=== PATIENT | male | born 1930 | race Caucasian/White ===

== ENCOUNTER → 2017-03-16 | Outpatient (CLI) | payer MEDICARE ==
[~2017-03-16] MED LIST: ASP81CT PO; ATOR40TA PO; CPR500T PO; MULT-963 PO; RAMI5CAP PO; TADA2.5T PO
--- NOTE | 2017-03-16 11:43 | Diagnostic Imaging Report ---
PROCEDURE: CT abdomen and pelvis without contrast. TECHNIQUE: Multiple contiguous axial images were obtained through the abdomen and pelvis without the use of intravenous contrast. INDICATION: Gross hematuria. FINDINGS: There is a 5 mm nodule in the right middle lobe surrounded by areas of scarring, similar to the 02/07/2016 exam, likely related to a focal scar. There is a subxiphoid fat-containing ventral hernia. There are multiple gallstones seen in the contracted gallbladder which demonstrates mild gallbladder wall thickening. No pericholecystic fluid. The liver, spleen, adrenal glands, and pancreas appear unremarkable. The abdominal aorta is 3 cm in diameter in the infrarenal segment, a relatively small AAA which measured up to 2.9 cm on the 02/07/2016 exam. The prostate is markedly enlarged measuring in maximum axial dimension 6.6 x 5 cm. The urinary bladder wall shows mild diffuse thickening, probably related to chronic obstructive changes related to the prostate. Superimposed cystitis could be present. There are no urinary tract stones. There is no hydronephrosis in either kidney. The colon demonstrates numerous diverticuli, mostly in the sigmoid colon, with no evidence of diverticulitis. No bowel obstruction. No significant fluid or fluid collection in the abdomen or pelvis is seen. There is a fat-containing small right indirect inguinal hernia. There is a right sided vascular graft with a takeoff from the upper common femoral artery and directed caudally. The osseous structures demonstrate advanced degenerative changes. IMPRESSION: 1. Markedly enlarged and lobulated prostate gland. Correlate with PSA levels. 2. Urinary bladder mild diffuse wall thickening could be related to chronic obstructive changes from the prostate enlargement of related to cystitis. 3. 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 4. Diverticulosis but no diverticulitis. 5. There are gallbladder stones with a contracted gallbladder which may relate to chronic cholecystitis. 6. Subxiphoid ventral fat-containing hernia. Dictated by: Dictated on workstation # [id number]
== END ==
LOC: RAD 08:27
PROVIDERS: ATTEND Urology
DX: R31.0 Gross hematuria (principal)
CPT/HCPCS: 74176

== ENCOUNTER → 2018-01-13 | Outpatient (CLI) | payer MEDICARE ==
[~2018-01-13] VITALS: Ht 177.8 cm; Wt 83.0 kg
[~2018-01-13] MED LIST changes: +REGADENOSON 0.4 MG/5 ML SYR (LEXISCAN) IV ONE
[2018-01-13] MEDS: CATHETER FLUSH 10 ML SYR IV PRN ×2 (11:55→13:17)
[2018-01-13 13:15] VITALS: BP 156/86
--- NOTE | 2018-01-14 01:07 | STRESS TEST ---
DATE OF SERVICE: 01/13/2018 LEXISCAN MYOVIEW STRESS TEST REPORT REFERRING PHYSICIAN: Dm Oconnor DO. Baseline heart rate is 59, baseline blood pressure 156/86. Baseline EKG is sinus rhythm with no ischemic changes. In summary, patient was injected with 10.9 mCi of technetium-99 Myoview and the resting images were obtained. Then, the patient received 0.4 mg of Lexiscan followed by 29.2 mCi of technetium-99 Myoview. Throughout the test, there were no EKG changes. The resting and stress images were reviewed and compared in the short axis, horizontal long axis, and vertical long axis views. Review of the images showed diaphragmatic attenuation with fixed defect involving the basal to mid inferolateral wall. No significant ischemia was noted. SSS is 7, SDS 0, and TID value 1.0. On the gated images, the left ventricle appeared to be in normal size with normal contractility. Calculated ejection fraction is 64%. CONCLUSION: 1. The patient tolerated Lexiscan well. 2. Diaphragmatic attenuation with fixed defect involving the basal to mid inferolateral wall with no significant ischemia. 3. Normal left ventricular size with normal contractility. Calculated ejection fraction is 64%. Job ID: [id number] DocumentID: [id number] Dictated Date: 01/13/2018 17:32:43 Impact Hammer Operator Date: 01/13/2018 23:01:46 Dictated By: JACOB STARKEY MD
== END ==
LOC: CARD 10:27
PROVIDERS: ATTEND Internal Medicine Cardiovascular Disease
DX: I25.10 Atherosclerotic heart disease of native coronary artery without angina pectoris (principal); I10 Essential (primary) hypertension; E78.2 Mixed hyperlipidemia; I73.9 Peripheral vascular disease, unspecified; R00.2 Palpitations; I47.2 Ventricular tachycardia; M19.90 Unspecified osteoarthritis, unspecified site
CPT/HCPCS: 78452; 93017

== ENCOUNTER → 2018-11-25 | Outpatient (CLI) | payer MEDICARE ==
[~2018-11-25] MED LIST changes: +IOHEXOL 350 MG/ML 100 ML (OMNIPAQUE 350) VIAL IV ONE; +NS 100 ML (IVPB) BAG IV ONE; +RECEIVED CONTRAST (Hold Metformin) IV SCH; -REGADENOSON 0.4 MG/5 ML SYR (LEXISCAN) IV ONE
[2018-11-25 15:34] LABS: BUN/CREATININE RATIO 11; CREATININE SERUM 0.99 MG/DL (0.60-1.30); GFR ESTIMATED > 60
--- NOTE | 2018-11-25 17:52 | Diagnostic Imaging Report ---
INDICATION: Lymphadenopathy. TECHNIQUE: CT of the neck, chest, abdomen, and pelvis obtained with precontrast CT of the abdomen followed by post IV contrast study of the neck, chest, abdomen, and pelvis. COMPARISON: There is no prior neck or chest CT, comparison made to prior abdomen and pelvis CT of 03/16/2017. CT neck findings: Thyroid gland and submandibular glands and parotid glands appear symmetric and unremarkable. There is moderate plaquing in the carotid bifurcations. There are no appreciably enlarged nodes in the neck soft tissues. Epiglottis appears unremarkable. CT chest findings: There are no enlarged mediastinal or hilar nodes. There are no enlarged axillary nodes or chest wall lesions. There is no pleural or pericardial fluid. Patient has had previous coronary bypass. Lung parenchymal windows demonstrate emphysematous changes. There are some patchy groundglass infiltrates in the left midlung and superior segment of the left lower lobe as well as in the right upper lobe. No discrete nodule is seen. CT abdomen and pelvis findings: The liver shows no focal lesion. There is cholelithiasis. The spleen, pancreas, and adrenals appear normal. The kidneys bilaterally are unremarkable. The patient does have a small fat-containing ventral hernia in the epigastric region. This finding is unchanged compared to the prior study. There is no retroperitoneal adenopathy. There is no ascites. Visualized bowel loops show uncomplicated diverticula. There is no abnormal fluid collection in the pelvis. The patient appears to have a right femoral bypass. There is adenopathy versus mass in the soft tissues surrounding the origin of the bypass which may represent scarring and/or hematoma and/or abscess. This area in total measures about 4.1 x 2.5 cm. There is some induration of the fat extending up to the skin surface. There is a mildly prominent right inguinal node measuring about 11 mm. There is mild prostatic enlargement. The abdominal aorta is mildly aneurysmal measuring 3.1 cm. IMPRESSION: 1. CT neck demonstrates no appreciable adenopathy or mass lesion. There is some plaquing in the carotid bifurcation on both sides. There is no acute finding. 2. CT chest shows postoperative changes. There is no appreciable adenopathy in the chest. There are emphysematous changes. There are scattered groundglass infiltrates versus scarring in the parenchyma of both lungs, as above. There is no discrete or well-defined mass. 3. CT abdomen and pelvis demonstrates cholelithiasis. Abdominal aorta is mildly aneurysmal measuring 3.1 cm. There is abnormal soft tissue density about the patient's right femoral bifurcation and bypass origin, with soft tissue density measuring about 4.1 x 2.5 cm, not present on the previous study of 03/16/2017. This may represent hematoma, abscess, or scarring. There is induration of the fat extending up to the skin surface. Ultrasound may be helpful to further characterize this process. There is a mildly enlarged node in the right inguinal region measuring 11 mm. Dictated by: Dictated on workstation # [id number]
== END ==
LOC: RAD 14:09
PROVIDERS: ATTEND Surgery
DX: I65.23 Occlusion and stenosis of bilateral carotid arteries (principal); J43.9 Emphysema, unspecified; K80.20 Calculus of gallbladder without cholecystitis without obstruction; I71.4 Abdominal aortic aneurysm, without rupture; M79.89 Other specified soft tissue disorders; R59.0 Localized enlarged lymph nodes; Z95.1 Presence of aortocoronary bypass graft; Z98.890 Other specified postprocedural states
CPT/HCPCS: 36415; 70491; 71260; 74178; 82565; 84520

== ENCOUNTER 2019-01-17 05:39 | Outpatient (CLI) | payer MEDICARE ==
[~2019-01-17] VITALS: Ht 177.8 cm; Wt 79.4 kg
[~2019-01-17 05:39] MED LIST changes: -IOHEXOL 350 MG/ML 100 ML (OMNIPAQUE 350) VIAL IV ONE; -NS 100 ML (IVPB) BAG IV ONE; -RECEIVED CONTRAST (Hold Metformin) IV SCH
[2019-01-17] MEDS ORDERED: ACET-2469 PO (09:36)
[2019-01-17] MEDS ORDERED: RAMI5CAP65 PO (09:36)
[2019-01-17] MEDS ORDERED: METO-333 PO (09:36)
[2019-01-17] MEDS ORDERED: ASPI-999 PO (09:36)
[2019-01-17] MEDS ORDERED: ATOR80TA76 PO (09:36)
[2019-01-17] MEDS ORDERED: DUTA0.5C16 PO (09:36)
[2019-01-17] MEDS ORDERED: EZET10TA27 PO (09:36)
[2019-01-18] MEDS ORDERED: HYDR-34 PO (13:25)
== END 2019-01-17 09:51 | disposition home or self-care (01) ==
LOC: PREOP 05:39
PROVIDERS: ATTEND Surgery
DX: Z01.818 Encounter for other preprocedural examination (principal)

== ENCOUNTER 2019-01-18 08:27 | Day surgery (SDC) | payer MEDICARE ==
[~2019-01-18] VITALS: Ht 175.3 cm; Wt 77.1 kg
[~2019-01-18 08:27] MED LIST changes: +ACET-2469 PO; +ASPI-999 PO; +ATOR80TA76 PO; +DUTA0.5C16 PO; +EZET10TA27 PO; +METO-333 PO; +RAMI5CAP65 PO
[2019-01-18 09:00] VITALS: BP 133/69
[2019-01-18] MEDS ORDERED: LACTATED RINGERS 1,000 ML IV PRN (09:02)
[2019-01-18] MEDS ORDERED: ceFAZolin 2 GM IV Premixed 50 ML IV ONE (09:15)
[2019-01-18] MEDS ORDERED: CATHETER FLUSH 10 ML SYR IV PRN (09:30)
[2019-01-18] MEDS ORDERED: MIDAZOLAM 2 MG/2 ML (VERSED) VIAL IVP ONE (11:05)
[2019-01-18] MEDS ORDERED: MIDAZOLAM 2 MG/2 ML (VERSED) VIAL ONE (11:18)
[2019-01-18] MEDS ORDERED: BUP/EPI 0.5% 1:200,000 (SENSORCAINE) 30 ML VIAL ONE (11:56)
[2019-01-18] MEDS ORDERED: fentaNYL INJECTION 100 MCG/2 ML AMP ONE (12:40)
[2019-01-18] MEDS ORDERED: LIDOCAINE PF 2% 5 ML (XYLOCAINE) VIAL ONE (12:40)
[2019-01-18] MEDS ORDERED: SEVOFLURANE (ULTANE) 15 ML INHAL SOLN ONE ×5 (12:40→14:06)
[2019-01-18] MEDS ORDERED: ONDANSETRON 4 MG/2 ML (SDV) Z0FRAN ONE (12:40)
[2019-01-18] MEDS ORDERED: proPOfol 200 MG/20 ML (DIPRIVAN) VIAL IV ONE (12:40)
[2019-01-18] MEDS ORDERED: DEXAMETHASONE 10 MG/ML (DECADRON) 1 ML VIAL ONE (12:40)
--- NOTE | 2019-01-18 13:24 | Progress Note-Pre Operative ---
Pre-Operative Progress Note H&P Reviewed The H&P was reviewed, patient examined and no changes noted. Date Seen by Provider: Jan 18, 2019 Time Seen by Provider: 13:00 Date H&P Reviewed: Jan 18, 2019 Time H&P Reviewed: 13:00 Pre-Operative Diagnosis: persistent right groin mass KELLIE MÉNDEZ MD Jan 18, 2019 13:24
[2019-01-18] MEDS ORDERED: HYDR-34 PO (13:25)
--- NOTE | 2019-01-18 13:26 | Discharge Inst-Surgical ---
D/C Lap Instructions-K[place]Kerry New, Converted, or Re-Newed RX: RX on Chart Follow Up Appt in 2 weeks Activity as tolerated Regular Diet Symptoms to Report: Fever over 101 degree F, Nausea/Vomiting Infection Signs and Symptoms to report: Increased redness, Foul odor of wound, Increased drainage Bathing instructions: May shower Operative Area Clean/Dry; Keep incision clean/dry If any problems/questions: Contact your physician or go to Emergency Room KELLIE MÉNDEZ MD Jan 18, 2019 13:26
[2019-01-18] MEDS ORDERED: morphine INJ 10 MG/ML 1ML (SYR OR VIAL) IVP PRN (13:30)
[2019-01-18] MEDS ORDERED: ONDANSETRON 4 MG/2 ML (SDV) Z0FRAN IVP PRN ×2 (13:30→14:45)
[2019-01-18] MEDS ORDERED: oxyCODONE/APAP 5/325MG (PERCOCET 5) TABLET PO PRN (13:30)
[2019-01-18] MEDS ORDERED: ACETAMINOPHEN 325 MG TABLET PO PRN (13:30)
[2019-01-18] MEDS ORDERED: morphine INJ 10 MG/ML 1ML (SYR OR VIAL) IVP ONE (14:45)
--- NOTE | 2019-01-18 14:57 | Anesthesia-General Post-Op ---
General Patient Condition Mental Status/LOC: Same as Preop Cardiovascular: Satisfactory Nausea/Vomiting: Absent Respiratory: Satisfactory Pain: Controlled Complications: Absent Post Op Complications Complications None Follow Up Care/Instructions Patient Instructions None needed. Anesthesia/Patient Condition Patient Condition Patient is doing well, no complaints, stable vital signs, no apparent adverse anesthesia problems. ESTEFANI MAY DO Jan 18, 2019 14:57
[2019-01-18 15:25] VITALS: BP 161/72
[2019-01-18 15:55] VITALS: BP 159/78
--- NOTE | 2019-01-18 16:20 | OPERATIVE REPORT ---
DATE OF SERVICE: 01/18/2019 ATTENDING PRIMARY CARE PHYSICIAN: Dr. Oconnor. PREOPERATIVE DIAGNOSIS: Palpable mass and persistent open wound, right groin. 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 PROCEDURE: Dissection femoral arterial graft and vein and excision of chronic granulomatous tissue surrounding the structures. SURGEON: Kellie Méndez MD. ANESTHESIA: General laryngeal mask airway. ESTIMATED BLOOD LOSS: Minimal. FINDINGS: Chronic granulomatous tissue surrounding the right femoral PTFE graft from a previous femoral to popliteal bypass. The chronic granulomatous tissue was also encompassing the femoral vein and there was adjacent scar tissue causing compression, which was excised while preserving the arterial graft and vein. DISPOSITION: The patient tolerated the procedure well. INDICATIONS: The patient is an 88-year-old male, who presented with a right groin mass approximately in October of 2018. He reports that the mass grew larger in size and opened and began to drain. After we had seen him in the office, the lesion did not appear to be pulsatile; however, due to his previous history of femoral to popliteal bypass with PTFE graft in 2016, we referred him back to his vascular surgeon at [facility]. They report that an ultrasound was performed, which did not show any attachment to the graft to indicate a pseudoaneurysm or aneurysm. Upon further questioning, he reported that he did have an episode of fever and chills several months after the graft was placed and was worked up; however, no source of infection could be found at that time. Upon examination, he has a significant sized palpable mass of the right groin, which is nonpulsatile; however, hard. There is also an opening with chronic granulomatous tissue. DESCRIPTION OF PROCEDURE: The patient was brought to the operating room and laid supine on the table. After adequate IV pain and sedating medications and general laryngeal mask airway intubation, the perineum and abdomen prepped and draped in a standard surgical fashion. A 0.5% Marcaine with epinephrine was then used to anesthetize the overlying skin to the lesion. The open wound was then fully excised until normal skin was encompassed. We then proceeded with dissection of the tract and the entirety of the mass and dissection of all the chronic granulomatous tissue and scar tissue in the meticulous fashion using Metzenbaum scissors as well as electrocautery. As we followed the lesion down to the base, the lesion did encompass the femoral arterial graft, which was fully exposed using blunt dissection as well as electrocautery. The femoral vein was also left intact and the scar tissue around the femoral vein was then excised using a Metzenbaum scissors. Good hemostasis was observed. The specimen was sent to pathology. The fascia was then approximated using 3-0 Vicryl interrupted sutures. Skin was closed using 4-0 Monocryl running subcuticular suture. Wound was then cleaned and covered with Dermabond. The patient tolerated the procedure well. It appears that he does have a chronically infected PTFE femoral to popliteal graft at the level of the femoral anastomosis. Hopefully, after the excision of the granulomatous tissue as well as antibiotics, the infection can be contained and asymptomatic; however, if he does have a reoccurrence of the lesion, he will most likely need excision of the graft as well as placement of either autologous vein or a cryopreserved vein graft. Job ID: [id number] DocumentID: [id number] Dictated Date: 01/18/2019 15:17:38 Sole Rougher Date: 01/18/2019 16:19:31 Dictated By: KELLIE MÉNDEZ MD MTDD
[2019-01-18 16:25] VITALS: BP 160/97
== END 2019-01-18 16:25 | disposition home or self-care (01) ==
LOC: SDC 08:27
PROVIDERS: ATTEND Surgery
DX: T85.79XA Infection and inflammatory reaction due to other internal prosthetic devices, implants and grafts, initial encounter (principal); L92.9 Granulomatous disorder of the skin and subcutaneous tissue, unspecified; I25.10 Atherosclerotic heart disease of native coronary artery without angina pectoris; I73.9 Peripheral vascular disease, unspecified; I10 Essential (primary) hypertension; E78.00 Pure hypercholesterolemia, unspecified; N40.0 Benign prostatic hyperplasia without lower urinary tract symptoms; Z95.1 Presence of aortocoronary bypass graft; Z95.820 Peripheral vascular angioplasty status with implants and grafts; Z87.891 Personal history of nicotine dependence; Z79.82 Long term (current) use of aspirin; Z79.899 Other long term (current) drug therapy
CPT/HCPCS: 87081

== ENCOUNTER → 2019-02-23 | Outpatient (CLI) | payer MEDICARE ==
[~2019-02-23] MED LIST changes: +HYDR-34 PO
== END ==
LOC: WOUNDCARE 09:10
PROVIDERS: ATTEND Surgery
DX: T82.7XXA Infection and inflammatory reaction due to other cardiac and vascular devices, implants and grafts, initial encounter (principal); I70.211 Atherosclerosis of native arteries of extremities with intermittent claudication, right leg; L97.113 Non-pressure chronic ulcer of right thigh with necrosis of muscle; L03.115 Cellulitis of right lower limb
CPT/HCPCS: 11042

== ENCOUNTER → 2019-02-28 | Outpatient (CLI) | payer MEDICARE | LOC: WOUNDCARE 12:20 | PROVIDERS: ATTEND Surgery | DX: T82.7XXA Infection and inflammatory reaction due to other cardiac and vascular devices, implants and grafts, initial encounter (principal); I70.211 Atherosclerosis of native arteries of extremities with intermittent claudication, right leg; L97.113 Non-pressure chronic ulcer of right thigh with necrosis of muscle; L03.115 Cellulitis of right lower limb | CPT/HCPCS: 11042 ==

== ENCOUNTER → 2019-03-07 | Outpatient (CLI) | payer MEDICARE | LOC: WOUNDCARE 12:55 | PROVIDERS: ATTEND Surgery | DX: T82.7XXA Infection and inflammatory reaction due to other cardiac and vascular devices, implants and grafts, initial encounter (principal); I70.211 Atherosclerosis of native arteries of extremities with intermittent claudication, right leg; L97.113 Non-pressure chronic ulcer of right thigh with necrosis of muscle | CPT/HCPCS: 11042 ==

== ENCOUNTER → 2019-03-14 | Outpatient (CLI) | payer MEDICARE | LOC: WOUNDCARE 12:55 | PROVIDERS: ATTEND Surgery | DX: T82.7XXA Infection and inflammatory reaction due to other cardiac and vascular devices, implants and grafts, initial encounter (principal); I70.211 Atherosclerosis of native arteries of extremities with intermittent claudication, right leg; L97.112 Non-pressure chronic ulcer of right thigh with fat layer exposed | CPT/HCPCS: 11042 ==

== ENCOUNTER → 2019-03-21 | Outpatient (CLI) | payer MEDICARE | LOC: WOUNDCARE 12:45 | PROVIDERS: ATTEND Surgery | DX: T82.7XXA Infection and inflammatory reaction due to other cardiac and vascular devices, implants and grafts, initial encounter (principal); I70.211 Atherosclerosis of native arteries of extremities with intermittent claudication, right leg; L97.112 Non-pressure chronic ulcer of right thigh with fat layer exposed; L92.8 Other granulomatous disorders of the skin and subcutaneous tissue | CPT/HCPCS: 11042; 17250 ==

== ENCOUNTER → 2019-03-28 | Outpatient (CLI) | payer MEDICARE | LOC: WOUNDCARE 12:34 | PROVIDERS: ATTEND Surgery | DX: T82.7XXA Infection and inflammatory reaction due to other cardiac and vascular devices, implants and grafts, initial encounter (principal); I70.211 Atherosclerosis of native arteries of extremities with intermittent claudication, right leg; L97.112 Non-pressure chronic ulcer of right thigh with fat layer exposed; L92.8 Other granulomatous disorders of the skin and subcutaneous tissue | CPT/HCPCS: 17250 ==

== ENCOUNTER → 2019-04-11 | Outpatient (CLI) | payer MEDICARE ==
[~2019-04-11] MED LIST changes: -EZET10TA27 PO; +EZET10TA49 PO
== END ==
LOC: WOUNDCARE 12:40
PROVIDERS: ATTEND Surgery
DX: T82.7XXA Infection and inflammatory reaction due to other cardiac and vascular devices, implants and grafts, initial encounter (principal); I70.211 Atherosclerosis of native arteries of extremities with intermittent claudication, right leg; L97.112 Non-pressure chronic ulcer of right thigh with fat layer exposed; L92.8 Other granulomatous disorders of the skin and subcutaneous tissue
CPT/HCPCS: 11042

== ENCOUNTER → 2019-04-18 | Outpatient (CLI) | payer MEDICARE | LOC: WOUNDCARE 12:44 | PROVIDERS: ATTEND Surgery | DX: T82.7XXA Infection and inflammatory reaction due to other cardiac and vascular devices, implants and grafts, initial encounter (principal); I70.211 Atherosclerosis of native arteries of extremities with intermittent claudication, right leg; L97.112 Non-pressure chronic ulcer of right thigh with fat layer exposed; L92.8 Other granulomatous disorders of the skin and subcutaneous tissue | CPT/HCPCS: 17250 ==

== ENCOUNTER → 2019-04-25 | Outpatient (CLI) | payer MEDICARE | LOC: WOUNDCARE 12:43 | PROVIDERS: ATTEND Surgery | DX: T82.7XXA Infection and inflammatory reaction due to other cardiac and vascular devices, implants and grafts, initial encounter (principal); I70.211 Atherosclerosis of native arteries of extremities with intermittent claudication, right leg; L97.112 Non-pressure chronic ulcer of right thigh with fat layer exposed; L92.8 Other granulomatous disorders of the skin and subcutaneous tissue | CPT/HCPCS: 17250 ==

== ENCOUNTER → 2019-05-02 | Outpatient (CLI) | payer MEDICARE | LOC: WOUNDCARE 12:43 | PROVIDERS: ATTEND Surgery | DX: T82.7XXA Infection and inflammatory reaction due to other cardiac and vascular devices, implants and grafts, initial encounter (principal); I70.211 Atherosclerosis of native arteries of extremities with intermittent claudication, right leg; L97.112 Non-pressure chronic ulcer of right thigh with fat layer exposed; L92.8 Other granulomatous disorders of the skin and subcutaneous tissue | CPT/HCPCS: 17250 ==

== ENCOUNTER → 2019-05-16 | Outpatient (CLI) | payer MEDICARE | LOC: WOUNDCARE 12:44 | PROVIDERS: ATTEND Surgery | DX: L97.421 Non-pressure chronic ulcer of left heel and midfoot limited to breakdown of skin (principal); L30.1 Dyshidrosis [pompholyx]; L92.9 Granulomatous disorder of the skin and subcutaneous tissue, unspecified; L97.112 Non-pressure chronic ulcer of right thigh with fat layer exposed; T82.7XXA Infection and inflammatory reaction due to other cardiac and vascular devices, implants and grafts, initial encounter; I70.211 Atherosclerosis of native arteries of extremities with intermittent claudication, right leg | CPT/HCPCS: 17250 ==

== ENCOUNTER → 2019-05-23 | Outpatient (CLI) | payer MEDICARE | LOC: WOUNDCARE 12:45 | PROVIDERS: ATTEND Surgery | DX: L92.9 Granulomatous disorder of the skin and subcutaneous tissue, unspecified (principal); L97.112 Non-pressure chronic ulcer of right thigh with fat layer exposed; T82.7XXA Infection and inflammatory reaction due to other cardiac and vascular devices, implants and grafts, initial encounter; I70.211 Atherosclerosis of native arteries of extremities with intermittent claudication, right leg | CPT/HCPCS: 17250 ==

== ENCOUNTER → 2019-07-05 | Outpatient (CLI) | payer MEDICARE | LOC: WOUNDCARE 13:36 | PROVIDERS: ATTEND Surgery | DX: L92.8 Other granulomatous disorders of the skin and subcutaneous tissue (principal); L97.112 Non-pressure chronic ulcer of right thigh with fat layer exposed; T82.7XXA Infection and inflammatory reaction due to other cardiac and vascular devices, implants and grafts, initial encounter; I70.211 Atherosclerosis of native arteries of extremities with intermittent claudication, right leg; I96 Gangrene, not elsewhere classified | CPT/HCPCS: 17250 ==

== ENCOUNTER → 2019-08-02 | Outpatient (CLI) | payer MEDICARE | LOC: WOUNDCARE 13:17 | PROVIDERS: ATTEND Surgery | DX: I70.261 Atherosclerosis of native arteries of extremities with gangrene, right leg (principal); L97.112 Non-pressure chronic ulcer of right thigh with fat layer exposed; T82.7XXA Infection and inflammatory reaction due to other cardiac and vascular devices, implants and grafts, initial encounter; L92.8 Other granulomatous disorders of the skin and subcutaneous tissue | CPT/HCPCS: 99212 ==

== ENCOUNTER → 2019-08-30 | Outpatient (CLI) | payer MEDICARE | LOC: WOUNDCARE 13:40 | PROVIDERS: ATTEND Surgery | DX: I70.261 Atherosclerosis of native arteries of extremities with gangrene, right leg (principal); L97.112 Non-pressure chronic ulcer of right thigh with fat layer exposed; T82.7XXA Infection and inflammatory reaction due to other cardiac and vascular devices, implants and grafts, initial encounter; L92.8 Other granulomatous disorders of the skin and subcutaneous tissue | CPT/HCPCS: 99212 ==

== ENCOUNTER → 2019-09-27 | Outpatient (CLI) | payer MEDICARE | LOC: WOUNDCARE 13:43 | PROVIDERS: ATTEND Surgery | DX: I70.261 Atherosclerosis of native arteries of extremities with gangrene, right leg (principal); T82.7XXA Infection and inflammatory reaction due to other cardiac and vascular devices, implants and grafts, initial encounter; L97.112 Non-pressure chronic ulcer of right thigh with fat layer exposed; L92.8 Other granulomatous disorders of the skin and subcutaneous tissue | CPT/HCPCS: 99212 ==